=== PATIENT | female | born 1970 | race Caucasian/White ===

== ENCOUNTER 2023-10-31 06:32 | Day surgery (SDC) | payer OTHER ==
[~2023-10-31] VITALS: Ht 154.9 cm; Wt 70.3 kg
[2023-10-31] MEDS ORDERED: fentaNYL citrate 0.05 MG/ML VIAL ONE (07:30)
[2023-10-31] MEDS ORDERED: MIDAZOLAM 5 MG/5 ML VIAL ONE (07:30)
[2023-10-31] MEDS ORDERED: LIDOCAINE 2% 100 MG/5 ML UJET TP ONE (07:30)
[2023-10-31] MEDS ORDERED: SIMETHICONE 40 MG/0.6 ML ONE (08:00)
[2023-10-31] MEDS ORDERED: LIDOCAINE 2% 100 MG/5 ML SYR IVP ONE (08:15)
[2023-10-31] MEDS: fentaNYL citrate 0.05 MG/ML VIAL IVP ONE (08:20)
== END 2023-10-31 08:55 | disposition home or self-care (01) ==
LOC: MOR 06:32 → MMU 06:33 → MOR 08:55
PROVIDERS: ATTEND Internal Medicine Gastroenterology
DX: Z12.11 Encounter for screening for malignant neoplasm of colon (principal)
CPT/HCPCS: 45378; J3010; J2250